=== PATIENT | female | born 1940 | race Two or more races ===

== ENCOUNTER 2024-09-29 01:22 | Inpatient (IN) | payer MEDICARE, BC ==
[~2024-09-29] VITALS: Ht 167.6 cm; Wt 54.4 kg
[2024-09-29 02:10] VITALS: BP 151/76; TEMP 97.8; TEMP 98.1; O2SAT 97
[2024-09-29] MEDS ORDERED: ACETAMINOPHEN 325 MG TABLET PO PRN (02:30)
[2024-09-29] MEDS ORDERED: MAG HYDROX/AL HYDROX/SIMETH 30 ML UDC PO PRN (02:30)
[2024-09-29] MEDS ORDERED: LORAZEPAM 0.5 MG TABLET PO PRN (02:30)
[2024-09-29] MEDS ORDERED: TEMAZEPAM 7.5 MG CAPSULE PO PRN (02:30)
[2024-09-29] MEDS: LORAZEPAM 0.5 MG TABLET PO PRN (03:17)
[2024-09-29] MEDS: BLOOD SUGAR DIAGNOSTIC 1 EACH STRIP IN ONE (03:17)
[2024-09-29] MEDS ORDERED: ESCI20TA PO (03:58)
[2024-09-29] MEDS ORDERED: METO25TA20 PO (03:58)
[2024-09-29 08:00] VITALS: BP 155/97; TEMP 97.8; O2SAT 98
[2024-09-29] MEDS: METOPROLOL TARTRATE 25 MG TABLET PO SCH (08:23)
[2024-09-29] MEDS: ESCITALOPRAM OXALATE (10 MG) 10 MG TABLET PO SCH (12:22)
[2024-09-29 12:29] VITALS: BP 131/81; O2SAT 95
[2024-09-29 16:03] VITALS: BP 160/83; TEMP 98.6; O2SAT 96
[2024-09-29] MEDS: CLONIDINE HCL 0.1 MG TABLET PO PRN (16:38)
[2024-09-29 20:08] VITALS: BP 145/76; TEMP 98; O2SAT 94
[2024-09-29] MEDS ORDERED: MIRTAZAPINE 15 MG TABLET PO SCH (22:00)
[2024-09-30 08:00] VITALS: BP 159/77; TEMP 98.1; O2SAT 97
[2024-09-30] MEDS: ESCITALOPRAM OXALATE (10 MG) 10 MG TABLET PO SCH (09:02)
[2024-09-30 16:00] VITALS: BP 155/90; TEMP 97.9; O2SAT 95
[2024-09-30 20:22] VITALS: BP 147/88; TEMP 97.9; O2SAT 96
[2024-09-30] MEDS: MIRTAZAPINE 15 MG TABLET PO SCH (21:28)
[2024-10-01 08:00] VITALS: BP 142/80; TEMP 98.7; O2SAT 98
[2024-10-01] MEDS: ESCITALOPRAM OXALATE (10 MG) 10 MG TABLET PO SCH (15:23)
[2024-10-01 16:00] VITALS: BP 147/79; TEMP 98.1; O2SAT 98
[2024-10-01 20:00] VITALS: BP 162/86; TEMP 98.3; O2SAT 98
[2024-10-01 20:43] VITALS: BP 162/86; TEMP 98.3; O2SAT 98
[2024-10-01 21:30] VITALS: BP 125/71; TEMP 98.3; O2SAT 98
[2024-10-02 08:00] VITALS: BP 142/73; TEMP 98.2; O2SAT 96
[2024-10-02 16:00] VITALS: BP 148/85; TEMP 98.2; O2SAT 97
[2024-10-02 20:00] VITALS: BP 153/74; TEMP 98.2; O2SAT 98
[2024-10-03 08:00] VITALS: BP 159/89; TEMP 98.6; O2SAT 98
[2024-10-03] MEDS: ENSURE ENLIVE CHOC 237 ML CAN PO SCH (08:06)
[2024-10-03 16:00] VITALS: BP 159/75; TEMP 98; O2SAT 95
[2024-10-03 21:13] VITALS: BP 135/78; TEMP 98.3; O2SAT 94
[2024-10-04 08:00] VITALS: BP 157/85; TEMP 97.8; O2SAT 96
[2024-10-04] MEDS ORDERED: ESCITALOPRAM OXALATE (10 MG) 10 MG TABLET PO SCH (08:00)
[2024-10-04] MEDS: ESCITALOPRAM OXALATE (10 MG) 10 MG TABLET PO SCH (09:01)
[2024-10-04 13:22] LABS: ALBUMIN 3.6 g/dL (3.4-5.0); BILIRUBIN,DIRECT 0.2 mg/dL (0.0-0.2); BILIRUBIN,TOTAL 0.7 mg/dL (0.2-1.0); TOTAL PROTEIN, SERUM 7.3 g/dL (6.4-8.2)
[2024-10-04 16:00] VITALS: BP 130/74; TEMP 98; O2SAT 95
[2024-10-04 21:00] VITALS: BP 168/97; TEMP 98.2; O2SAT 97
[2024-10-04 22:15] VITALS: BP 128/61
[2024-10-05 01:54] LABS: THYROID STIMULATING HORMONE 1.11 uIU/mL (0.358-3.74)
[2024-10-05 08:00] VITALS: BP 153/90; TEMP 98.6; O2SAT 95
[2024-10-05 16:28] VITALS: BP 153/79; TEMP 98.6; O2SAT 99
[2024-10-05 16:52] VITALS: BP 130/67; TEMP 98.6; O2SAT 96
[2024-10-05] MEDS: MAGNESIUM HYDROXIDE 30 ML UDC PO PRN (18:21)
[2024-10-05 20:26] VITALS: BP 150/90; TEMP 98.6; O2SAT 95
[2024-10-06 08:00] VITALS: BP 144/76; TEMP 97.7; O2SAT 98
[2024-10-06 16:00] VITALS: BP 134/69; TEMP 97.8; O2SAT 98
[2024-10-06 20:09] VITALS: BP 152/80; TEMP 97.9; O2SAT 96
[2024-10-07 08:00] VITALS: BP 125/86; TEMP 97.7; O2SAT 96
[2024-10-07 16:00] VITALS: BP 146/84; TEMP 97.8; O2SAT 98
[2024-10-07 20:22] VITALS: BP 144/80; TEMP 97.8; O2SAT 96
[2024-10-08 08:00] VITALS: BP_SYST 114; BP_SYST 137; BP_DIAS 59; BP_DIAS 72; TEMP 97.9; O2SAT 100; O2SAT 97
[2024-10-08 16:00] VITALS: BP 160/81; TEMP 97.8; O2SAT 100
[2024-10-08 20:01] VITALS: BP 117/75; TEMP 98.3; O2SAT 99
[2024-10-09 08:00] VITALS: BP 105/74; TEMP 98.6; O2SAT 96
[2024-10-09 16:00] VITALS: BP 109/76; TEMP 97.5; O2SAT 98
[2024-10-09 20:00] VITALS: BP 108/72; TEMP 98; O2SAT 96
[2024-10-10 09:03] VITALS: BP 107/65; TEMP 97.2; O2SAT 97
[2024-10-10 16:37] VITALS: BP 127/78; TEMP 97.6; O2SAT 95
[2024-10-10] MEDS ORDERED: ENSURE ENLIVE CHOC 237 ML CAN PO SCH (17:00)
[2024-10-10 20:16] VITALS: BP 112/67; TEMP 98; O2SAT 98
[2024-10-10] MEDS: QUETIAPINE FUMARATE 25 MG TABLET PO SCH (21:30)
[2024-10-11 20:52] VITALS: BP 160/92; TEMP 98; O2SAT 96
[2024-10-12 08:00] VITALS: BP 104/68; TEMP 98.2; O2SAT 96
[2024-10-12 16:00] VITALS: BP_SYST 112; BP_SYST 124; BP_DIAS 76; BP_DIAS 81; TEMP 98.2; TEMP 98.4; O2SAT 95
[2024-10-12 21:44] VITALS: BP 133/81; TEMP 98.4; O2SAT 97
[2024-10-13 08:00] VITALS: BP 118/72; TEMP 98.7; O2SAT 98
[2024-10-13 08:36] VITALS: BP 153/90
== END 2024-10-13 13:00 | DRG 885 ==
LOC: GPS 02:02
PROVIDERS: ADMIT Psychiatry & Neurology Psychosomatic Medicine; ATTEND Internal Medicine
DX: F32.3 Major depressive disorder, single episode, severe with psychotic features (principal); R45.851 Suicidal ideations; F29 Unspecified psychosis not due to a substance or known physiological condition; I10 Essential (primary) hypertension; F41.9 Anxiety disorder, unspecified; K21.9 Gastro-esophageal reflux disease without esophagitis; Z86.73 Personal history of transient ischemic attack (TIA), and cerebral infarction without residual deficits; Z91.51 Personal history of suicidal behavior; F39 Unspecified mood [affective] disorder; M62.81 Muscle weakness (generalized); R41.9 Unspecified symptoms and signs involving cognitive functions and awareness; Z91.81 History of falling
CPT/HCPCS: 36415; 70450-TC; 80076-TC; 82607-TC; 82962-TC; 83921; 84443-TC; 87081-TC; 97110-TC; 97116-TC; 97530-TC

== ENCOUNTER 2024-11-03 23:58 | Inpatient (IN) | payer MEDICARE, BC ==
[~2024-11-03] VITALS: Ht 162.6 cm; Wt 47.6 kg
[~2024-11-03 23:58] MED LIST: ESCI20TA PO; METO25TA20 PO
[2024-11-04 00:10] VITALS: O2SAT 94
[2024-11-04] MEDS ORDERED: BUPR100T5 PO (00:26)
[2024-11-04] MEDS ORDERED: QUET25TA PO (00:26)
[2024-11-04] MEDS ORDERED: ESCI10TA PO (00:26)
[2024-11-04] MEDS ORDERED: MELA3TAB70 PO (00:26)
[2024-11-04] MEDS ORDERED: METO25TA6 PO (00:26)
[2024-11-04 00:57] LABS: BASOPHILS # (AUTO) 0.1 K/uL (0.0-0.2); BASOPHILS % (AUTO) 1.3 % (0.0-2.0); EOSINOPHILS # (AUTO) 0.1 K/uL (0.0-0.7); EOSINOPHILS % (AUTO) 1.7 % (0.0-6.0); HEMATOCRIT 38 % (33-45); HEMOGLOBIN 12.9 g/dL (11.5-14.8); LYMPHOCYTES # (AUTO) 1.1 K/uL (0.8-4.8); LYMPHOCYTES % (AUTO) 26.8 % (20.0-44.0); MEAN CORPUSCULAR HEMOGLOBIN 31 PG (26.0-33.0); MEAN CORPUSCULAR HGB CONC 34 g/dl (31.0-36.0); MEAN CORPUSCULAR VOLUME 92 fL (82-100); MONOCYTES # (AUTO) 0.5 K/uL (0.1-1.30); NEUTROPHILS # (AUTO) 2.5 K/uL (1.8-8.9); NEUTROPHILS % (AUTO) 58.2 % (43.0-81.0); PLATELET COUNT (AUTO) 247 K/uL (150-450); RED BLOOD CELL COUNT(AUTO) 4.15 MIL/uL (4.0-5.2); RED CELL DISTRIBUTION WIDTH 14.4 % (11.5-15.0); WHITE BLOOD COUNT (AUTO) 4.2 K/uL (4.3-11.0)
[2024-11-04 01:04] LABS: CALCIUM, SERUM 9.2 mg/dL (8.5-10.1); CARBON DIOXIDE 28 mmol/L (21-32); CHLORIDE 95 mmol/L (98-107); CREATININE 0.6 mg/dL (0.6-1.3); GLUCOSE 105 mg/dL (74-106); SODIUM SERUM 131 mmol/L (136-145); UREA NITROGEN, BLOOD 6 mg/dL (7-18)
[2024-11-04 01:16] LABS: ALANINE AMINOTRANSFERASE 14 U/L (12-78); ALBUMIN 3.1 g/dL (3.4-5.0); ALCOHOL, BLOOD < 3 mg/dL (0-10); ALKALINE PHOSPHATASE 66 U/L (46-116); ASPARTATE AMINOTRANSFERASE 18 U/L (15-37); BILIRUBIN,TOTAL 0.5 mg/dL (0.2-1.0); NT-PRO BNP 386 pg/mL (0-125); TOTAL PROTEIN, SERUM 6.6 g/dL (6.4-8.2)
[2024-11-04 01:17] LABS: ACETAMINOPHEN <10 ug/ml (10-30); SALICYLATE 1.8 mg/dL (2.8-20.0)
[2024-11-04 01:43] LABS: SERUM AMMONIA 14 umol/L (11-32)
[2024-11-04 02:08] LABS: APPEARANCE,URINE CLEAR (CLEAR); BILIRUBIN,URINE NEGATIVE (NEGATIVE); BLOOD, URINE NEGATIVE Ery/uL (NEGATIVE); COLOR,URINE YELLOW (YELLOW); KETONES,URINE TRACE mg/dL (NEGATIVE); LEUKOCYTE ESTERASE ,URINE 1+ (NEGATIVE); NITRITE, URINE NEGATIVE (NEGATIVE); PROTEIN,URINE NEGATIVE (NEGATIVE); UGLUCOSE NEGATIVE (NEGATIVE)
[2024-11-04 02:21] LABS: AMPHETAMINE, URINE NEGATIVE (NEGATIVE); BARBITURATE, URINE NEGATIVE (NEGATIVE); BENZODIAZEPINE, URINE NEGATIVE (NEGATIVE); CANNABINOID, URINE NEGATIVE (NEGATIVE); COCCAINE, URINE NEGATIVE (NEGATIVE); OPIATE, URINE NEGATIVE (NEGATIVE); PHENCYCLIDINE SCREEN,URINE NEGATIVE (NEGATIVE)
[2024-11-04 02:48] LABS: ADD URINE CULTURE YES; BACTERIA,URINE Few /HPF (None Seen); RBC,URINE 0-2 /HPF (0-2); SQUAMOUS EPITHELIAL CELL,UR Moderate /HPF (None Seen)
[2024-11-04 04:17] VITALS: BP 160/78; TEMP 97.7
[2024-11-04] MEDS ORDERED: MAG HYDROX/AL HYDROX/SIMETH 30 ML UDC PO PRN (04:30)
[2024-11-04] MEDS ORDERED: TEMAZEPAM 7.5 MG CAPSULE PO PRN (04:30)
[2024-11-04] MEDS ORDERED: LORAZEPAM 0.5 MG TABLET PO PRN (04:30)
[2024-11-04] MEDS ORDERED: ACETAMINOPHEN 325 MG TABLET PO PRN (04:30)
[2024-11-04] MEDS: BLOOD SUGAR DIAGNOSTIC 1 EACH STRIP IN ONE (04:53)
[2024-11-04] MEDS: LORAZEPAM 0.5 MG TABLET PO PRN (04:57)
[2024-11-04 08:00] VITALS: BP 145/78; TEMP 97.7; O2SAT 96
[2024-11-04] MEDS ORDERED: MELA3TAB41 PO (08:49)
[2024-11-04] MEDS ORDERED: MULT-594 PO (08:49)
[2024-11-04] MEDS ORDERED: MAGN400O6 PO (08:49)
[2024-11-04] MEDS ORDERED: DOCU100T2 PO (08:49)
[2024-11-04] MEDS ORDERED: BUPR150T10 PO (08:49)
[2024-11-04] MEDS ORDERED: ACET325T53 PO (08:49)
[2024-11-04] MEDS: ESCITALOPRAM OXALATE (10 MG) 10 MG TABLET PO SCH (10:59)
[2024-11-04] MEDS: MAGNESIUM HYDROXIDE 30 ML UDC PO PRN (10:59)
[2024-11-04] MEDS: METOPROLOL TARTRATE 25 MG TABLET PO SCH (10:59)
[2024-11-04] MEDS: CEPHALEXIN MONOHYDRATE 250 MG CAPSULE PO SCH (12:00)
[2024-11-04] MEDS: DOCUSATE SODIUM 100 MG CAPSULE PO SCH (13:25)
[2024-11-04 16:00] VITALS: BP 135/71; TEMP 98.1; O2SAT 95
[2024-11-04 20:20] VITALS: BP 127/80; TEMP 98.1; O2SAT 95
[2024-11-04] MEDS: QUETIAPINE FUMARATE 25 MG TABLET PO SCH (21:04)
[2024-11-04 21:13] LABS: URINE SODIUM, RANDOM 35 mmol/l (40-220)
[2024-11-04] MEDS: TEMAZEPAM 7.5 MG CAPSULE PO PRN (21:19)
[2024-11-05 08:00] VITALS: BP 151/85; TEMP 97.6; O2SAT 94
[2024-11-05 08:33] LABS: THYROID STIMULATING HORMONE 1.12 uIU/mL (0.358-3.74); URIC ACID 2.9 mg/dL (2.6-7.2)
[2024-11-05 08:39] LABS: PHOSPHORUS 3.8 mg/dL (2.5-4.9)
[2024-11-05] MEDS: BUPROPION XL 150 MG TAB.ER.24 PO SCH (09:26)
[2024-11-05] MEDS: DOCUSATE SODIUM 100 MG CAPSULE PO SCH (09:30)
[2024-11-05 09:49] LABS: BILIRUBIN,TOTAL 0.5 mg/dL (0.2-1.0); CALCIUM, SERUM 9.1 mg/dL (8.5-10.1); CREATININE 0.7 mg/dL (0.6-1.3); POTASSIUM 4.2 mmol/L (3.5-5.1); TOTAL PROTEIN, SERUM 6.4 g/dL (6.4-8.2)
[2024-11-05] MEDS: MULTIVIT W/MINERALS 1 TAB TABLET PO SCH (14:08)
[2024-11-05 16:01] VITALS: BP 155/84; TEMP 98.8; O2SAT 96
[2024-11-05 20:07] VITALS: BP 120/67; TEMP 98.5; O2SAT 96
[2024-11-06 08:00] VITALS: BP 132/71; TEMP 97.5; O2SAT 95
[2024-11-06 16:00] VITALS: BP 126/68; TEMP 97.7; O2SAT 98
[2024-11-06 20:00] VITALS: BP 127/73; TEMP 98.2; O2SAT 94
[2024-11-07 08:00] VITALS: BP 127/85; TEMP 98.7; O2SAT 97
[2024-11-07 16:00] VITALS: BP 126/65; TEMP 97.7; O2SAT 98
[2024-11-07 21:01] VITALS: BP 137/66; TEMP 98.1; O2SAT 98
[2024-11-08 08:00] VITALS: BP 145/71; TEMP 97.8; O2SAT 95
[2024-11-08 16:00] VITALS: BP 116/68; TEMP 98; O2SAT 96
[2024-11-08] MEDS: ENSURE ENLIVE CHOC 237 ML CAN PO SCH (17:21)
[2024-11-09 08:00] VITALS: BP 122/68; TEMP 98.4; O2SAT 97
[2024-11-09 15:27] VITALS: BP 126/92; TEMP 97.3; O2SAT 98
[2024-11-09 20:48] VITALS: BP 150/88; TEMP 97.8; O2SAT 96
[2024-11-10 08:00] VITALS: BP 133/84; TEMP 97.8; O2SAT 97
[2024-11-10] MEDS: ESCITALOPRAM OXALATE (10 MG) 10 MG TABLET PO ONE (12:19)
[2024-11-10 16:00] VITALS: BP 123/76; TEMP 98.5; O2SAT 96
[2024-11-10 20:32] VITALS: BP 150/81; TEMP 98.1; O2SAT 95
[2024-11-11 08:00] VITALS: BP 131/68; TEMP 97.8; O2SAT 97
[2024-11-11] MEDS: ESCITALOPRAM OXALATE (10 MG) 10 MG TABLET PO SCH (13:15)
[2024-11-11 16:04] VITALS: BP 155/89; TEMP 97.9; O2SAT 95
[2024-11-11 20:18] VITALS: BP 129/85; TEMP 97.9; O2SAT 96
[2024-11-12 08:00] VITALS: BP 128/63; TEMP 98.1; O2SAT 99
[2024-11-12 16:00] VITALS: BP 116/78; TEMP 98.1; O2SAT 97
[2024-11-12 19:59] VITALS: BP 121/80; TEMP 97.7; O2SAT 96
[2024-11-13 08:00] VITALS: BP 137/74; TEMP 97.7; O2SAT 98
[2024-11-13 08:07] VITALS: BP 137/74
== END 2024-11-13 11:30 | DRG 885 ==
LOC: ER 11-04 00:01 → GPS 11-04 02:41
PROVIDERS: ADMIT Psychiatry & Neurology Psychosomatic Medicine; ATTEND Nurse Practitioner Acute Care
DX: F32.3 Major depressive disorder, single episode, severe with psychotic features (principal); E44.1 Mild protein-calorie malnutrition; E87.1 Hypo-osmolality and hyponatremia; I45.2 Bifascicular block; Z68.1 Body mass index [BMI] 19.9 or less, adult; I10 Essential (primary) hypertension; I25.10 Atherosclerotic heart disease of native coronary artery without angina pectoris; E88.09 Other disorders of plasma-protein metabolism, not elsewhere classified; F41.9 Anxiety disorder, unspecified; F39 Unspecified mood [affective] disorder; G62.9 Polyneuropathy, unspecified; K21.9 Gastro-esophageal reflux disease without esophagitis; Z79.899 Other long term (current) drug therapy; Z20.822 Contact with and (suspected) exposure to COVID-19; R13.10 Dysphagia, unspecified; F29 Unspecified psychosis not due to a substance or known physiological condition; G31.84 Mild cognitive impairment of uncertain or unknown etiology
CPT/HCPCS: 36415; 80053-TC; 80061-TC; 81001; 82140-TC; 82962-TC; 83735-TC; 83880; 83935-TC; 84100-TC; 84300-TC; 84443-TC; 84484-TC; 84550-TC; 85025-TC; 87081-TC; 87086-TC; 97110-TC; 97116-TC; 97530-TC; G0480